=== PATIENT | male | born 2005 | race Two or more races ===

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

== ENCOUNTER 2025-04-06 11:09 | Inpatient (IN) | payer BC ==
[~2025-04-06] VITALS: Ht 175.3 cm; Wt 68.6 kg
[2025-04-06] MEDS: MORPHINE SULFATE INJ 2 MG/ml SYRG IV ONE (11:30)
--- NOTE | 2025-04-06 11:33 | ED.PDOC ---
GI ASSESSMENT HPI Comments Patient is a 19-year-old male with no significant past medical history who comes in due to acute intractable abdominal pain. According to the patient, this morning he woke up with mild, faint abdominal pain which worsened to become and excruciating midabdominal pain around 10:30 a.m., patient was driving when the pain worsened. Patient describes the pain as a sharp, burning pain, 10/10 in intensity without any exacerbating or relieving factors and associated with nausea and vomiting. Patient had 2 episodes of vomiting vomitus containing whitish phone. On review of systems patient is complaining of nausea, vomiting and dysuria. Chief Complaint: Abdominal Pain Time Seen by MD: 11:15 Allergies: Coded Allergies: NO KNOWN ALLERGIES (Unverified , 08/25/22) Past Medical History PAST MEDICAL HISTORY: Denies Surgical History: Denies all surgeries Social History Smoker: Non-Smoker Alcohol: Occasionally (Last drink was 04/02/2024) Drugs: Denies Drug Use Constitutional: denies: chills, diaphoresis, fatigue, fever, malaise, sweats, weakness, others EENTM: denies: blurred vision, double vision, ear bleeding, ear discharge, ear drainage, ear pain, ear ringing, eye pain, eye redness, hearing loss, mouth pain, mouth swelling, nasal discharge, nose bleeding, nose congestion, nose pain, photophobia, tearing, throat pain, throat swelling, voice changes, others Respiratory: denies: cough, hemoptysis, orthopnea, SOB at rest, shortness of breath, SOB with excertion, stridor, wheezing, others Cardiovascular: denies: chest pain, dizzy spells, diaphoresis, Dyspnea on exertion, edema, irregular heart beat, left arm pain, lightheadedness, palpitations, PND, syncope, others Gastrointestinal: reports: nausea, vomiting; denies: abdomen distended, abdomi nal pain, blood streaked bowels, constipated, diarrhea, dysphagia, difficulty swallowing, hematemesis, melena, poor appetite, poor fluid intake, rectal bleeding, rectal pain, others Genitourinary: reports: burning, dysuria; denies: flank pain, frequency, hematuria, incontinence, penile discharge, penile sore, pain, testicle pain, testicle swelling, urgency, others Neurological: denies: dizziness, fainting, headache, left sided numbness, left sided weakness, numbness, paresthesia, pre-existing deficit, right sided numbness, right sided weakness, seizure, speech problems, tingling, tremors, weakness, others Musculoskeletal: denies: back pain, gout, joint pain, joint swelling, muscle pain, muscle stiffness, neck pain, others Integumetry: denies: bruises, change in color, change in hair/nails, dryness, laceration, lesions, lumps, rash, wounds, others Allergic/Immunocompromised: denies: Difficulty Healing, Frequent Infections, Hives, Itching, others Hematologic/Lymphatic: denies: anemia, blood clots, easy bleeding, easy bruising, swollen glands, others Endocrine: denies: excessive hunger, excessive sweating, excessive thirst, excessive urination, flushing, intolerance to cold, intolerance to heat, unexplained weight gain, unexplained weight loss, others Psychiatric: denies: anxiety, bipolar disorder, depression, hopeless, panic disorder, schizophrenia, sleepless, suicidal, others Physical Exam General Appearance: Moderate Distress HEENT: Normal ENT Inspection, PERRL/EOMI Neck: Non-Tender, Normal, Normal Inspection Respiratory: No Accessory Muscle Use, No Respiratory Distress, Normal Breath Sounds Cardiovascular: Normal Peripheral Pulses, Regular Rate/Rhythm Breast Exam: Deferred Gastrointestinal: Diffuse, Guarding, Tenderness Genitalia: Deferred Pelvic: Deferred Rectal: Rectal Exam not done Extremities: No calf tenderness, Normal capillary refill, Normal inspection, Normal range of motion, Non-tender, No pedal edema Neurologic: Alert, No Motor Deficits, Normal Affect, Normal Mood, No Sensory Deficits Cerebellar Function: Normal Reflexes: NOT DONE Skin: Dry, Normal Color Peripheral Pulses: 2+ dorsalis pedis (R), 2+ dorsalis pedis (L) Lymphatic: NOT DONE Was a procedure done? Was a procedure done?: No GI differential Dx Differential Diagnosis: Appendicitis, Cholecystitis, Diverticular disease, Gastritis/PUD, Kidney Stone X-Ray, Labs, Meds, VS Vital Signs Date Time Temp Pulse Resp B/P (MAP) Pulse Ox O2 Delivery O2 Flow Rate FiO2 04/06/25 12:46 98 Room Air* 0 21 04/06/25 12:36 92 17 121/80 04/06/25 12:10 79 17 100 Room Air 04/06/25 12:10 98.4 79 17 117/84 (95) 100 98.4 04/06/25 12:06 79 17 117/84 04/06/25 11:11 97.7 66 18 139/90 99 97.7 Lab Test 04/06/25 11:31 Range/Units White Blood Count 8.4 4.4-10.8 10^3/uL Red Blood Count 5.12 4.5-5.90 10^6/uL Hemoglobin 15.7 13.5-17.5 g/dL Hematocrit 46.5 41.0-53.0 % Mean Corpuscular Volume 90.7 80.0-100.0 fL Mean Corpuscular Hemoglobin 30.6 28.0-32.0 pg Mean Corpuscular Hemoglobin Concent 33.7 32.0-36.0 g/dL Red Cell Distribution Width 13.0 11.8-14.3 % Platelet Count 322 140-450 10^3/uL Mean Platelet Volume 7.2 6.9-10.8 fL Neutrophils (%) (Auto) 77.5 37.0-80.0 % Lymphocytes (%) (Auto) 13.7 10.0-50.0 % Monocytes (%) (Auto) 7.8 0.0-12.0 % Eosinophils (%) (Auto) 0.3 0.0-7.0 % Basophils (%) (Auto) 0.7 0.0-2.0 % Neutrophils # (Auto) 6.5 1.6-8.6 10 ^3/uL Lymphocytes # (Auto) 1.1 0.4-5.4 10 ^3/uL Monocytes # (Auto) 0.7 0-1.3 10 ^3/uL Eosinophils # (Auto) 0 0-0.8 10 ^3/uL Basophils # (Auto) 0.1 0-0.2 10 ^3/uL Nucleated Red Blood Cells 0.2 % Sodium Level 140 136-145 mmol/L Potassium Level 3.8 3.5-5.1 mmol/L Chloride Level 103 98-107 mmol/L Carbon Dioxide Level 26 20-31 mmol/L Anion Gap 11 5-15 Blood Urea Nitrogen 12 9-23 mg/dL Creatinine 0.88 0.700-1.30 mg/dL Glomerular Filtration Rate Calc 125 >90 mL/min BUN/Creatinine Ratio 13.6 10.0-20.0 Serum Glucose 104 74-106 mg/dL Calcium Level 9.3 8.7-10.4 mg/dL Lipase 23 12-53 U/L Current Medications Medications (Trade) Dose Ordered Sig/Haile Route Start Time Stop Time Status Last Admin Morphine Sulfate 4 mg ONCE ONCE IV 04/06/25 12:00 04/06/25 12:01 DC 04/06/25 12:06 Ondansetron HCl (Zofran) 4 mg ONCE ONCE IV 04/06/25 12:15 04/06/25 12:16 DC 04/06/25 12:06 Sodium Chloride 500 ml @ 500 mls/hr Q1H ONCE IV 04/06/25 13:15 04/06/25 14:14 04/06/25 13:28 Ketorolac Tromethamine (Toradol Injection) 15 mg ONCE ONCE IV 04/06/25 13:15 04/06/25 13:16 DC 04/06/25 13:28 Time of 1ST Reevaluation: 12:10 Reevaluation 1ST: Unchanged Time of 2ND Reevaluation: 13:30 Reevaluation 2ND: Worsened Patient Education/Counseling: Diagnosis, Treatment, Prognosis, Need For Follow Up Family Education/Counseling: Diagnosis, Treatment, Prognosis, Need For Follow Up SEPSIS Sepsis Screen Physician Orders Ct Ab Pel Wo Con-No Oral Or Iv (04/06/25 11:26) Urinalysis (04/06/25 12:04) Sodium Chloride 0.9% (04/06/25 13:15) Sodium Chloride 0.9% (04/06/25 13:15) Vital Signs Date Time Temp Pulse Resp B/P (MAP) Pulse Ox O2 Delivery O2 Flow Rate FiO2 04/06/25 12:46 98 Room Air* 0 21 04/06/25 12:36 92 17 121/80 04/06/25 12:10 79 17 100 Room Air 04/06/25 12:10 98.4 79 17 117/84 (95) 100 98.4 04/06/25 12:06 79 17 117/84 04/06/25 11:11 97.7 66 18 139/90 99 97.7 Laboratory Tests Test 04/06/25 11:31 White Blood Count 8.4 10^3/uL (4.4-10.8) Medications Medications Dose Ordered Sig/Haile Route Start Time Stop Time Status Last Admin Dose Admin Ketorolac Tromethamine 15 mg ONCE ONCE IV 04/06/25 13:15 04/06/25 13:16 DC 04/06/25 13:28 Morphine Sulfate 4 mg ONCE ONCE IV 04/06/25 12:00 04/06/25 12:01 DC 04/06/25 12:06 Ondansetron HCl 4 mg ONCE ONCE IV 04/06/25 12:15 04/06/25 12:16 DC 04/06/25 12:06 Sodium Chloride 500 ml @ 500 mls/hr Q1H ONCE IV 04/06/25 13:15 04/06/25 14:14 04/06/25 13:28 Departure 1 Departure Time of Disposition: 13:54 Impression: Primary Impression: Acute pancreatitis Qualified Codes: K85.90 - Acute pancreatitis without necrosis or infection, unspecified Additional Impressions: Gastritis Cholecystitis Appendicitis Qualified Codes: K37 - Unspecified appendicitis Disposition: ADMITTED INPATIENT Admit to: Med Surg Condition: Guarded Comments Patient continues to have acute intractable abdominal pain, pain somewhat improved with IV Toradol, however, continued to return. Patient also has decreased oral intake, nausea and vomiting. CT scan largely unremarkable except medullary nephrocalcinosis, may have passed a stone. Currently pending UA. Critical Care Note Critical Care Time?: No Stability Stability form required: JOSE MIGUEL Reyes RESIDENT Apr 06, 2025 11:33
[2025-04-06 11:48] LABS: Hematocrit 46.5 % (41.0-53.0); Hemoglobin 15.7 g/dL (13.5-17.5); Mean Corpuscular Hemoglobin 30.6 pg (28.0-32.0); Mean Corpuscular Volume 90.7 fL (80.0-100.0); Nucleated Red Blood Cells % 0.2 %
[2025-04-06 11:50] LABS: Anion Gap 11 (5-15); Carbon Dioxide 26 mmol/L (20-31); Chloride 103 mmol/L (98-107); Potassium 3.8 mmol/L (3.5-5.1); Sodium 140 mmol/L (136-145)
[2025-04-06 11:51] LABS: Calcium 9.3 mg/dL (8.7-10.4)
[2025-04-06 11:56] LABS: BUN/Creatinine Ratio 13.6 (10.0-20.0); Blood Urea Nitrogen 12 mg/dL (9-23); Glucose 104 mg/dL (74-106); Lipase 23 U/L (12-53)
[2025-04-06] MEDS: MORPHINE SULFATE 4 MG/ML SYR/VIAL IV ONE (12:06)
[2025-04-06] MEDS: ONDANSETRON HCL 4 MG/2 ML VIAL IV ONE (12:06)
--- NOTE | 2025-04-06 12:27 | DVH ---
EXAM: CT CT AB PEL WO CON-NO ORAL OR IV HISTORY: gen ab pain Comparison Study: None Exam Date: 04/06/2025 11:33 AM Radiation Dose Information: CT Dose: CTDI volume is 5.8 mGy. Dose-length product is 290 mGy*cm Technique: Multidetector CT of the abdomen and pelvis was performed. Imaging was performed without IV contrast. Axial, coronal and sagittal multiplanar reformats were obtained from the axial data set by the technologist. Findings: Lack of intravenous contrast compromises evaluation of perfusion and for isodense lesions. Lower chest: Clear. Liver: Unremarkable Biliary system: Unremarkable Spleen: Unremarkable Pancreas: Unremarkable. Adrenals: Unremarkable. Kidneys and ureters: No hydronephrosis inferior mild hyperdensity in the bilateral renal medulla, [id number]-left. Bowel: No obstruction. Bladder: Unremarkable Reproductive organs: No abnormal mass. Lymph nodes: Unremarkable. Peritoneum: Unremarkable Vessels: Patency not evaluated on this noncontrast study. Bones and soft tissue: No aggressive osseous lesion IMPRESSION: No acute CT findings in the abdomen and pelvis. Possible early medullary nephrocalcinosis. No hydronephrosis.
[2025-04-06 12:46] VITALS: O2SAT 98
[2025-04-06] MEDS: KETOROLAC TROMETH 30 MG/ML 1ML VIAL IV ONE (13:28)
[2025-04-06] MEDS: SODIUM CHLORIDE 0.9% 500 ML IV ONE ×3 (13:28→16:45)
[2025-04-06 13:30] VITALS: PULSE 66; RESP 21; O2SAT 97
[2025-04-06 14:21] LABS: Urine Protein, UAD TRACE (Negative); Urine WBC Clumps PRESENT /hpf (None Seen)
[2025-04-06] MEDS ORDERED: ACETAMINOPHEN 325 MG TAB PO PRN (15:45)
[2025-04-06] MEDS ORDERED: ONDANSETRON HCL 4 MG/2 ML VIAL IV PRN (15:45)
[2025-04-06] MEDS ORDERED: KETOROLAC TROMETH 30 MG/ML 1ML VIAL IV PRN (15:45)
[2025-04-06 15:57] LABS: Alanine Aminotransferase 14.0 U/L (7-40); Alkaline Phosphatase 77.0 U/L (46-116); Bilirubin, Direct 0.3 mg/dL (<0.3); Total Protein 7.6 g/dL (5.7-8.2)
[2025-04-06 15:58] LABS: Bilirubin, Total 0.9 mg/dL (0.2-1.0)
[2025-04-06 15:59] LABS: Albumin 4.9 g/dL (3.2-4.8)
--- NOTE | 2025-04-06 16:39 | DVH ---
US limited, RUQ Indication: RUQ pain Comparison: CT 04/06/2025. Technique: Limited ultrasound of the abdomen was performed and reviewed. Findings: The pancreas is partially obscured by bowel gas. Unremarkable homogeneous liver echogenicity. No evidence of cholelithiasis or gallbladder wall thickening. Negative sonographic Hurtado's sign. The common bile duct measures 3 mm. The right kidney is 10.7 cm. No evidence for hydronephrosis. IMPRESSION: NO ACUTE SONOGRAPHIC FINDINGS IN THE RIGHT UPPER QUADRANT.
[2025-04-06] MEDS: PANTOPRAZOLE 40 MG TAB PO ONE (16:45)
--- NOTE | 2025-04-06 18:02 | DVHHPRES ---
History of Present Illness Resident Creating Document: RYAN BRYSON RESIDENT History of Present Illness Patient is a 19-year-old male with no significant medical history presented to the ED after he reported of severe abdominal pain associated with nausea and vomiting earlier this morning. Patient reportedly woke up today had mild abdominal discomfort following which he had a regular bowel movement and then later on while he was driving started to have excruciating abdominal pain more on the right flank region associated with the nausea and vomiting following which he came to the ED for further evaluation. Patient described the pain as sharp, diffuse but more in the right, 10/10 on intensity without any exacerbating or relieving factors. CT abdomen pelvis was done which did not report any acute intra-abdominal abnormality, but on reviewing the images possible ureteric stones could be seen bilaterally. Medical history: None Surgical history: None Social history: Denies any smoking, alcohol, drug use No medications Review of Systems Review of Systems Reports diffuse abdominal pain Denies fever, chills, nausea or vomiting Allergies: Coded Allergies: NO KNOWN ALLERGIES (Unverified , 08/25/22) Medications Current Medications Medications Dose Ordered Sig/Haile Route Start Time Stop Time Status Last Admin Dose Admin Ceftriaxone Sodium 50 ml @ 100 mls/hr DAILY@09 IV 04/07/25 09:00 Pantoprazole Sodium 40 mg DAILY@0600 PO 04/07/25 06:00 Morphine Sulfate 2 mg Q6HPRN PRN IV 04/06/25 16:00 Ketorolac Tromethamine 15 mg Q6HPRN PRN IV 04/06/25 15:45 04/11/25 15:44 Acetaminophen 650 mg Q6HP PRN PO 04/06/25 15:45 Ondansetron HCl 4 mg Q6HPRN PRN IV 04/06/25 15:45 Exam Vital Signs Vital Signs Date Time Temp Pulse Resp B/P (MAP) Pulse Ox O2 Delivery O2 Flow Rate FiO2 04/06/25 15:30 82 21 119/69 (86) 82 04/06/25 13:30 Room Air* 0 21 04/06/25 13:30 98.3 98.3 Exam Skin - Patients skin is warm and dry. HEENT - normocephalic, atraumatic, moist mucous membranes, no pallor or icterus Neck - full ROM, no LAD, no JVD Pulmonary - B/L clear breath sounds cardiovascular - regular S1,S2 heard, no added sounds GI - soft, nontender abdomen. no hepatospleenomegaly. Bowel sounds normoactive Neurological - Patient is A/O X 4 . Bilateral upper extremity strength 5/5, bilateral lower extremity strength 5/5, no facial droop, normal speech, no tremor, no sensory deficiets. Labs/Xrays Labs Test 04/06/25 12:05 04/06/25 11:31 Range/Units Urine Color Colorless Yellow Urine Clarity Ex.turbid Clear Urine pH 7.0 5.0-9.0 Urine Specific [place] 1.027 1.001-1.035 Urine Protein Trace H Negative Urine Ketones 3+ H Negative Urine Blood Negative Negative /uL Urine Nitrite Negative Negative Urine Bilirubin Negative Negative Urine Urobilinogen Normal Negative mg/dL Urine Leukocyte Esterase Negative Negative /uL Urine RBC 10 0 - 3 /hpf Urine WBC Clumps Present None Seen /hpf Urine Microscopic WBC 19 H 0-3 /HPF Urine Squamous Epithelial Cells None seen <5 /hpf Urine Bacteria None seen None Seen /hpf Urine Mucus Few None Seen Urine Glucose Normal Normal mg/dL White Blood Count 8.4 4.4-10.8 10^3/uL Red Blood Count 5.12 4.5-5.90 10^6/uL Hemoglobin 15.7 13.5-17.5 g/dL Hematocrit 46.5 41.0-53.0 % Mean Corpuscular Volume 90.7 80.0-100.0 fL Mean Corpuscular Hemoglobin 30.6 28.0-32.0 pg Mean Corpuscular Hemoglobin Concent 33.7 32.0-36.0 g/dL Red Cell Distribution Width 13.0 11.8-14.3 % Platelet Count 322 140-450 10^3/uL Mean Platelet Volume 7.2 6.9-10.8 fL Neutrophils (%) (Auto) 77.5 37.0-80.0 % Lymphocytes (%) (Auto) 13.7 10.0-50.0 % Monocytes (%) (Auto) 7.8 0.0-12.0 % Eosinophils (%) (Auto) 0.3 0.0-7.0 % Basophils (%) (Auto) 0.7 0.0-2.0 % Neutrophils # (Auto) 6.5 1.6-8.6 10 ^3/uL Lymphocytes # (Auto) 1.1 0.4-5.4 10 ^3/uL Monocytes # (Auto) 0.7 0-1.3 10 ^3/uL Eosinophils # (Auto) 0 0-0.8 10 ^3/uL Basophils # (Auto) 0.1 0-0.2 10 ^3/uL Nucleated Red Blood Cells 0.2 % Sodium Level 140 136-145 mmol/L Potassium Level 3.8 3.5-5.1 mmol/L Chloride Level 103 98-107 mmol/L Carbon Dioxide Level 26 20-31 mmol/L Anion Gap 11 5-15 Blood Urea Nitrogen 12 9-23 mg/dL Creatinine 0.88 0.700-1.30 mg/dL Glomerular Filtration Rate Calc 125 >90 mL/min BUN/Creatinine Ratio 13.6 10.0-20.0 Serum Glucose 104 74-106 mg/dL Calcium Level 9.3 8.7-10.4 mg/dL Total Bilirubin 0.9 0.2-1.0 mg/dL Direct Bilirubin 0.3 <0.3 mg/dL Aspartate Amino Transferase (AST) 14 13-40 U/L Alanine Aminotransferase (ALT) 14 7-40 U/L Alkaline Phosphatase 77 46-116 U/L Total Protein 7.6 5.7-8.2 g/dL Albumin 4.9 H 3.2-4.8 g/dL Lipase 23 12-53 U/L SEPSIS Sepsis Screen Date sepsis recognized/suspect: Apr 06, 2025 Time Sepsis recognized/suspect: 1112 Recent Procedure: No On Antibiotic Therapy: No Respiratory Rate >20: No Heart Rate >90: No Temp<36 C (96.8 F) or >38.3 C: No SBP <90 or MAP <65 mmHG: No New Acute Mental Status Change: No Is the patient on CPAP, BIPAP,: No Physician Orders Ct Ab Pel Wo Con-No Oral Or Iv (04/06/25 11:26) Urine Bacterial Culture (04/06/25 15:02) Admit (04/06/25 15:32) Notify Of Changes From Base (04/06/25 15:32) Emergency Dysrhythmia Protocol (04/06/25 15:32) Oxygen By Nasal Cannula (04/06/25 15:32) Stat Ekg For Chest Pain (04/06/25 15:32) Gallbladder (04/06/25 15:32) Ceftriaxone 1gm/50ml (Rocephin) (04/07/25 09:00) Pantoprazole Tablet (Protonix Tablet) (04/07/25 06:00) Ketorolac Injection (Toradol Injection) (04/06/25 15:45) Acetaminophen Tablet (Tylenol Tablet) (04/06/25 15:45) Ondansetron Hcl (Zofran) (04/06/25 15:45) Regular Diet (04/06/25 Dinner) Morphine Sulfate Injection (04/06/25 16:00) Vital Signs Date Time Temp Pulse Resp B/P (MAP) Pulse Ox O2 Delivery O2 Flow Rate FiO2 04/06/25 15:30 82 21 119/69 (86) 82 04/06/25 13:30 66 21 97 Room Air* 0 21 04/06/25 13:30 98.3 66 21 110/64 (79) 97 98.3 04/06/25 12:46 98 Room Air* 0 21 04/06/25 12:36 92 17 121/80 04/06/25 12:10 79 17 100 Room Air 04/06/25 12:10 98.4 79 17 117/84 (95) 100 98.4 04/06/25 12:06 79 17 117/84 04/06/25 11:11 97.7 66 18 139/90 99 97.7 Laboratory Tests Test 04/06/25 11:31 White Blood Count 8.4 10^3/uL (4.4-10.8) Medications Medications Dose Ordered Sig/Haile Route Start Time Stop Time Status Last Admin Dose Admin Ceftriaxone Sodium 50 ml @ 100 mls/hr ONCE ONCE IV 04/06/25 15:45 04/06/25 16:14 DC 04/06/25 16:45 100 MLS/HR Ketorolac Tromethamine 15 mg ONCE ONCE IV 04/06/25 13:15 04/06/25 13:16 DC 04/06/25 13:28 15 MG Morphine Sulfate 4 mg ONCE ONCE IV 04/06/25 12:00 04/06/25 12:01 DC 04/06/25 12:06 4 MG Ondansetron HCl 4 mg ONCE ONCE IV 04/06/25 12:15 04/06/25 12:16 DC 04/06/25 12:06 4 MG Pantoprazole Sodium 40 mg ONCE ONCE PO 04/06/25 15:45 04/06/25 15:46 DC 04/06/25 16:45 40 MG Sodium Chloride 500 ml @ 500 mls/hr Q1H ONCE IV 04/06/25 13:15 04/06/25 14:14 DC 04/06/25 13:28 500 MLS/HR Sodium Chloride 500 ml @ 500 mls/hr Q1H ONCE IV 04/06/25 15:45 04/06/25 16:44 DC 04/06/25 16:45 500 MLS/HR Assessment/Plan Assessment/Plan Acute severe intractable abdominal pain Probable ureterolithiasis Early medullary nephrocalcinosis UTI - IV fluids - IV ceftriaxone - Urine culture pending - IV pain medications - CT abdomen pelvis reviewed - ultrasound kidney pending PUD prophylaxis: Protonix Goals of care discussed with the patient and mother for over 19 minutes. Full code Time spent: [address] Rankin Plan discussed with: Patient, Other (Mother) My Orders Orders - RYAN BRYSON RESIDENT Procedure Category Date Status Time Urine Bacterial MARC 04/06/25 Logged Culture 15:02 Admit ADMIT 04/06/25 Transmitted 15:32 Notify Of Changes SALINA 04/06/25 In Process From Base 15:32 Emergency Dysrhythmia SALINA 04/06/25 In Process Protocol 15:32 Oxygen By Nasal RT 04/06/25 Transmitted Cannula 15:32 Stat Ekg For Chest SALINA 04/06/25 In Process Pain 15:32 Gallbladder US 04/06/25 Resulted 15:32 Ceftriaxone 1gm/50ml PHA 04/07/25 In Process (Rocephin) 09:00 Pantoprazole Tablet PHA 04/07/25 In Process (Protonix Tablet) 06:00 Ketorolac Injection PHA 04/06/25 In Process (Toradol Injection) 15:45 Acetaminophen Tablet PHA 04/06/25 In Process (Tylenol Tablet) 15:45 Ondansetron Hcl PHA 04/06/25 In Process (Zofran) 15:45 Regular Diet DIET 04/06/25 Transmitted Dinner Morphine Sulfate PHA 04/06/25 In Process Injection 16:00 Date of Service: Apr 06, 2025 Billing Provider: ROLANDO RANKIN MD Common Visit Codes: [id number] INP/OBS CARE (HIGH) Secondary Visit Codes: [id number] CARE PLAN 30 MINUTES RYAN BRYSON RESIDENT Apr 06, 2025 18:02
[2025-04-06 18:34] VITALS: BP 132/81; PULSE 68; RESP 18; TEMP 99.6; O2SAT 100
[2025-04-06 19:00] VITALS: PULSE 68; RESP 18; O2SAT 100
--- NOTE | 2025-04-06 19:15 | DVH ---
RENAL ULTRASOUND CLINICAL HISTORY: probable ureteric stones, hydronephrosis TECHNIQUE: Multiple grayscale ultrasound images were obtained through the kidneys and urinary bladder. COMPARISON: CT abdomen pelvis from same day FINDINGS: Right kidney: Measures 10.3 cm. No hydronephrosis. Left kidney: Measures 9.9 cm. No hydronephrosis. Urinary bladder: Decompressed, bladder volume is 15.7 mL IMPRESSION: 1. Normal size kidneys without evidence of hydronephrosis.
[2025-04-06 20:37] VITALS: BP 125/71; PULSE 69; RESP 16; TEMP 98.7; O2SAT 97
[2025-04-06] MEDS: SODIUM CHLORIDE 0.9% 1,000 ML IV SCH (20:47)
[2025-04-06] MEDS: MORPHINE SULFATE 4 MG/ML SYR/VIAL IV PRN (20:47)
[2025-04-07 00:19] VITALS: BP 101/59; PULSE 83; RESP 16; TEMP 97.9; O2SAT 95
[2025-04-07 04:08] VITALS: BP 97/57; PULSE 74; RESP 15; TEMP 97.8; O2SAT 98
[2025-04-07] MEDS: PANTOPRAZOLE 40 MG TAB PO SCH (05:24)
[2025-04-07 05:56] LABS: Hematocrit 42.4 % (41.0-53.0); Hemoglobin 14.1 g/dL (13.5-17.5); Mean Corpuscular Hemoglobin 30.5 pg (28.0-32.0); Mean Corpuscular Volume 91.7 fL (80.0-100.0); Nucleated Red Blood Cells % 0.1 %
[2025-04-07 06:05] LABS: Anion Gap 9 (5-15); Carbon Dioxide 27 mmol/L (20-31); Chloride 106 mmol/L (98-107); Potassium 3.9 mmol/L (3.5-5.1); Sodium 142 mmol/L (136-145)
[2025-04-07 06:10] LABS: Calcium 8.5 mg/dL (8.7-10.4)
[2025-04-07 06:11] LABS: Glucose 91 mg/dL (74-106)
[2025-04-07 06:12] LABS: BUN/Creatinine Ratio 7.1 (10.0-20.0)
[2025-04-07 06:13] LABS: Blood Urea Nitrogen 7 mg/dL (9-23)
[2025-04-07 07:54] VITALS: PULSE 88; RESP 17; O2SAT 100
[2025-04-07 08:44] VITALS: BP 101/61; PULSE 88; RESP 17; TEMP 98.5; O2SAT 100
[2025-04-07 12:39] VITALS: BP 99/52; PULSE 72; RESP 16; TEMP 97.7; O2SAT 99
[2025-04-07] MEDS ORDERED: CEFD300C2 PO (14:12)
--- NOTE | 2025-04-07 14:30 | DVHDSRES ---
Discharge Summary Date of Admission Resident Creating Document: ISAURA VERA RESIDENT Apr 06, 2025 at 15:32 Date of Discharge: Apr 07, 2025 Admitting Diagnosis Intractable abdominal pain, rule out nephrolithiasis Labs/Diagnostic Data: Laboratory Results Test 04/07/25 04:56 04/06/25 12:05 04/06/25 11:31 White Blood Count 9.4 10^3/uL (4.4-10.8) Red Blood Count 4.63 10^6/uL (4.5-5.90) Hemoglobin 14.1 g/dL (13.5-17.5) Hematocrit 42.4 % (41.0-53.0) Mean Corpuscular Volume 91.7 fL (80.0-100.0) Mean Corpuscular Hemoglobin 30.5 pg (28.0-32.0) Mean Corpuscular Hemoglobin Concent 33.3 g/dL (32.0-36.0) Red Cell Distribution Width 13.0 % (11.8-14.3) Platelet Count 267 10^3/uL (140-450) Mean Platelet Volume 7.7 fL (6.9-10.8) Neutrophils (%) (Auto) 61.9 % (37.0-80.0) Lymphocytes (%) (Auto) 25.8 % (10.0-50.0) Monocytes (%) (Auto) 10.1 % (0.0-12.0) Eosinophils (%) (Auto) 1.4 % (0.0-7.0) Basophils (%) (Auto) 0.8 % (0.0-2.0) Neutrophils # (Auto) 5.8 10 ^3/uL (1.6-8.6) Lymphocytes # (Auto) 2.4 10 ^3/uL (0.4-5.4) Monocytes # (Auto) 0.9 10 ^3/uL (0-1.3) Eosinophils # (Auto) 0.1 10 ^3/uL (0-0.8) Basophils # (Auto) 0.1 10 ^3/uL (0-0.2) Nucleated Red Blood Cells 0.1 % Sodium Level 142 mmol/L (136-145) Potassium Level 3.9 mmol/L (3.5-5.1) Chloride Level 106 mmol/L (98-107) Carbon Dioxide Level 27 mmol/L (20-31) Anion Gap 9 (5-15) Blood Urea Nitrogen 7 mg/dL (9-23) Creatinine 0.99 mg/dL (0.700-1.30) Glomerular Filtration Rate Calc 111 mL/min (>90) BUN/Creatinine Ratio 7.1 (10.0-20.0) Serum Glucose 91 mg/dL (74-106) Calcium Level 8.5 mg/dL (8.7-10.4) Urine Color Colorless (Yellow) Urine Clarity Ex.turbid (Clear) Urine pH 7.0 (5.0-9.0) Urine Specific [place] 1.027 (1.001-1.035) Urine Protein Trace (Negative) Urine Ketones 3+ (Negative) Urine Blood Negative /uL (Negative) Urine Nitrite Negative (Negative) Urine Bilirubin Negative (Negative) Urine Urobilinogen Normal mg/dL (Negative) Urine Leukocyte Esterase Negative /uL (Negative) Urine RBC 10 /hpf (0 - 3) Urine WBC Clumps Present /hpf (None Seen) Urine Microscopic WBC 19 /HPF (0-3) Urine Squamous Epithelial Cells None seen /hpf (<5) Urine Bacteria None seen /hpf (None Seen) Urine Mucus Few (None Seen) Urine Glucose Normal mg/dL (Normal) Total Bilirubin 0.9 mg/dL (0.2-1.0) Direct Bilirubin 0.3 mg/dL (<0.3) Aspartate Amino Transferase (AST) 14 U/L (13-40) Alanine Aminotransferase (ALT) 14 U/L (7-40) Alkaline Phosphatase 77 U/L (46-116) C-Reactive Protein High Sensitivity 0.03 mg/dL (<1.0) Total Protein 7.6 g/dL (5.7-8.2) Albumin 4.9 g/dL (3.2-4.8) Lipase 23 U/L (12-53) Other Laboratory Tests 04/07/25 04:56 Brief Hx & Hospital Course: Hermelinda Triplett is a 19-year-old male with no significant medical history who presented to the ED with the chief complaints of nausea, vomiting and abdominal pain. Patient mentioned that he woke up with mild abdominal discomfort, which gradually progressed to excruciating pain, more on the right flank radiating to the right groin area, rated 8/10 in intensity, dull in character. He also complained of urinary symptoms of dysuria and burning pain on micturition. CT abdomen/pelvis was done which showed possible early medullary nephrocalcinosis. Gallbladder ultrasound showed no acute changes. Renal ultrasound showed normal- sized kidneys with no hydronephrosis. On evaluation today, patient stated that he had no nausea or abdominal pain anymore, and he has had no episode of vomiting since yesterday evening. Patient was discharged home in a stable condition on cefdinir 300 mg p.o. b.i.d. for 7 days for symptomatic UTI. All medications and recommendations were thoroughly explained to the patient and he demonstrated understanding of the same. He was recommended to follow up in [facility] clinic and with PCP in 1-2 weeks. Past medical history: None Past surgical history: None Social history: Denies any smoking, alcohol, drug use No home medications Physical examination on the day of discharge: Skin - Patients skin is warm and dry. HEENT - normocephalic, atraumatic, moist mucous membranes, no pallor or icterus Neck - full ROM, no LAD, no JVD Pulmonary - B/L clear breath sounds cardiovascular - regular S1,S2 heard, no added sounds GI - soft, nontender abdomen. no hepatosplenomegaly. Bowel sounds normoactive Neurological - Patient is A/O X 4 . Bilateral upper extremity strength 5/5, bilateral lower extremity strength 5/5, no facial droop, normal speech, no tremor, no sensory deficits. Operations or Procedures 1.PROCEDURE(s): ABPL - CT AB PEL WO CON-NO ORAL OR IV REASON: gen ab pain ORDER NUMBER(s): [id number], ACCESSION NUMBER(s): [id number] EXAM: CT CT AB PEL WO CON-NO ORAL OR IV HISTORY: gen ab pain Comparison Study: None Exam Date: 04/06/2025 11:33 AM Radiation Dose Information: CT Dose: CTDI volume is 5.8 mGy. Dose-length product is 290 mGy*cm Technique: Multidetector CT of the abdomen and pelvis was performed. Imaging was performed without IV contrast. Axial, coronal and sagittal multiplanar reformats were obtained from the axial data set by the technologist. Findings: Lack of intravenous contrast compromises evaluation of perfusion and for isodense lesions. Lower chest: Clear. Liver: Unremarkable Biliary system: Unremarkable Spleen: Unremarkable Pancreas: Unremarkable. Adrenals: Unremarkable. Kidneys and ureters: No hydronephrosis inferior mild hyperdensity in the bilateral renal medulla, [id number]-left. Bowel: No obstruction. Bladder: Unremarkable Reproductive organs: No abnormal mass. Lymph nodes: Unremarkable. Peritoneum: Unremarkable Vessels: Patency not evaluated on this noncontrast study. Bones and soft tissue: No aggressive osseous lesion IMPRESSION: No acute CT findings in the abdomen and pelvis. Possible early medullary nephrocalcinosis. No hydronephrosis. 2.PROCEDURE(s): GBUS - GALLBLADDER REASON: RUQ pain ORDER NUMBER(s): [id number], ACCESSION NUMBER(s): [id number] US limited, RUQ Indication: RUQ pain Comparison: CT 04/06/2025. Technique: Limited ultrasound of the abdomen was performed and reviewed. Findings: The pancreas is partially obscured by bowel gas. Unremarkable homogeneous liver echogenicity. No evidence of cholelithiasis or gallbladder wall thickening. Negative sonographic Hurtado's sign. The common bile duct measures 3 mm. The right kidney is 10.7 cm. No evidence for hydronephrosis. IMPRESSION: NO ACUTE SONOGRAPHIC FINDINGS IN THE RIGHT UPPER QUADRANT. 3.PROCEDURE(s): KIDUS - KIDNEY REASON: probable ureteric stones, ?hydronephrosis ORDER NUMBER(s): [id number], ACCESSION NUMBER(s): [id number] RENAL ULTRASOUND CLINICAL HISTORY: probable ureteric stones, hydronephrosis TECHNIQUE: Multiple grayscale ultrasound images were obtained through the kidneys and urinary bladder. COMPARISON: CT abdomen pelvis from same day FINDINGS: Right kidney: Measures 10.3 cm. No hydronephrosis. Left kidney: Measures 9.9 cm. No hydronephrosis. Urinary bladder: Decompressed, bladder volume is 15.7 mL IMPRESSION: 1. Normal size kidneys without evidence of hydronephrosis. Condition at Discharge: Fair Final Diagnosis/Problems List Acute severe intractable abdominal pain, likely due to below Acute symptomatic UTI Early medullary nephrocalcinosis Probable ureterolithiasis, ruled out Ruled out acute cholecystitis Discharge Disposition: Home Discharge Instruct/Medications Diet: Regular Activity: No Restrictions, As Tolerated Follow Up/Referral: follow up in dc clinic in 1 week follow up with PCP in 1-2 weeks Medications: as per EMR Scheduled Cefdinir (Cefdinir), 1 CAP PO BID Discharge Statement: "Patient was advised to return to the ER or call 911 if any headaches, dizziness, shortness of breath, chest pain, abdominal pain, bleeding, fevers, or worsening of medical condition. Patient was counseled about treatment plan, medications, possible side effects, patientverbalized understanding. All questions were answered to the best of my ability. This discharge took greater then 30 minutes in planning, reviewing documentation, counseling the patient, and discussing with other team members." ASSESSMENT ASSESSMENT Assessment acute severe intractable abdominal pain,ruled out nephrolithiais Date of Service: Apr 07, 2025 Billing Provider: ROLANDO LIANG MD Common Visit Codes: 03295-RQD/OBS DISCH DAY >30min ISAURA VERA RESIDENT Apr 07, 2025 14:30 ROLANDO LIANG MD Apr 08, 2025 20:28
== END 2025-04-07 15:05 | disposition home or self-care (01) | DRG 689 ==
LOC: EEVIPCON 11:09 → ER 11:09 → OVERFLOW 15:32 → EAST 17:25
PROVIDERS: ADMIT Emergency Medicine; ATTEND Emergency Medicine
DX: N39.0 Urinary tract infection, site not specified (principal); K85.90 Acute pancreatitis without necrosis or infection, unspecified; K37 Unspecified appendicitis; E83.59 Other disorders of calcium metabolism; K29.70 Gastritis, unspecified, without bleeding; N29 Other disorders of kidney and ureter in diseases classified elsewhere
CPT/HCPCS: 36415; 74176; 76705; 76775; 80048; 80076; 81001; 83690; 85025; 86141; 87086; 96361; 96374; 96375; G0378; J1885; J2405